=== PATIENT | female | born 1985 | race Hispanic/Latino ===

== ENCOUNTER → 2020-11-29 | Emergency (ER) | payer SELFPAY ==
[~2020-11-29] VITALS: Ht 152.4 cm; Wt 46.7 kg
== END | disposition home or self-care (01) ==
LOC: ER 05:48
DX: R10.9 Unspecified abdominal pain (principal); R11.2 Nausea with vomiting, unspecified; R19.7 Diarrhea, unspecified
CPT/HCPCS: 99282